=== PATIENT | male | born 1995 | race Caucasian/White ===

== ENCOUNTER 2019-05-06 23:59 | Emergency (ER) | payer SELFPAY ==
[2019-05-07 02:20] VITALS: BP 121/71; PULSE 74; TEMP 99.3; BMI 29.5
--- NOTE | 2019-05-07 02:25 | PDOC ---
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 Pt has no fevers at this time. Right TM is red; pt has more pain at the right throat>> left throat Pt hasno phryngeal exudates Pt has left TM bullous myringitis bubble. Pt will be treated with ZPAK - Physicial Exam PE: 05/07/19 02:51 TMright red TM left bubble on the TM pharynx normal HEENT normal Afebrile heart RR Lungs CTAB Abd soft NT ND +BS No C/C/E Pt is well hydrated - Medical Decision Making 05/07/19 02:52 Home with [facility]
[2019-05-07] MEDS ORDERED: IBUPROFEN 600 MG TABLET (FP) PO ONE ×2 (02:26→02:34)
[2019-05-07] MEDS ORDERED: AMOX TR/POT CLAV 875MG/125MG TABLETS (FP) PO ONE (02:26)
--- NOTE | 2019-05-07 02:26 | PDOC ---
History of Present Illness - General Chief Complaint: Sore Throat Stated Complaint: SORE THROAT Time Seen by Provider: 05/07/19 02:12 - History of Present Illness Initial Comments: The pt is a 23M w/ no reported PMH who presents for evaluation of 5 days of sore throat, right ear pain, and intermittent global/gradual onset HAs. He endorses associated nausea and cough. Denies fevers, chest pain, vomiting, diarrhea, ear drainage, vision/hearing changes, sick contacts. Has tried Naproxen with little relief. 05/07/19 02:23 Past History - Past Medical History Allergies/Adverse Reactions: Allergies Allergy/AdvReac Type Severity Reaction Status Date / Time No Known Allergies Allergy Verified 05/07/19 00:17 Home Medications: Ambulatory Orders Azithromycin [Zithromax 250mg Tablets -] 250 mg PO UTDICT #6 tab 05/07/19 - Psycho Social/Smoking Cessation Hx Smoking History: Current every day smoker Number of Cigarettes Smoked Daily: 20 Information on smoking cessation initiated: No Hx Alcohol Use: Yes Drug/Substance Use Hx: No Review of Systems - Review of Systems Able to Perform ROS?: Yes Comments:: GENERAL/CONSTITUTIONAL: No chills. No weakness HEAD, EYES, EARS, NOSE AND THROAT: No change in vision. No change in hearing CARDIOVASCULAR: No chest pain or shortness of breath RESPIRATORY: Denies hemoptysis GASTROINTESTINAL: No vomiting, diarrhea or constipation GENITOURINARY: No dysuria, frequency, or change in urination MUSCULOSKELETAL: No joint or muscle swelling or pain. No neck or back pain SKIN: No rash NEUROLOGIC: No headache, vertigo, loss of consciousness, or change in strength/ sensation ENDOCRINE: No increased thirst. No abnormal weight change HEMATOLOGIC/LYMPHATIC: No anemia, easy bleeding, or history of blood clots ALLERGIC/IMMUNOLOGIC: No hives or skin allergy 05/07/19 03:01 *Physical Exam - Vital Signs Last Vital Signs Temp Pulse Resp BP Pulse Ox 99.3 F 74 18 121/71 98 05/07/19 00:17 05/07/19 00:17 05/07/19 00:17 05/07/19 00:17 05/07/19 00:17 - Physical Exam GENERAL: Awake, alert, and oriented to person/place/time, in no acute distress HEAD: No signs of trauma, normoc ephalic, atraumatic EYES: PERRLA, EOMI, sclera anicteric, conjunctiva clear ENT: Hearing grossly normal, R TM dull w/ erythema, L TM w/ effusion w/o erythema, no external ear tenderness, nares patent, oropharynx clear without exudates. No uvular deviation. Moist mucosa LUNGS: No distress, speaks in full sentences, clear to auscultation bilaterally HEART: Regular rate and rhythm, normal S1 and S2, no murmurs appreciated, peripheral pulses normal and equal bilaterally ABDOMEN: Soft, nontender, normoactive bowel sounds. No guarding, no rebound EXTREMITIES: Normal inspection, Normal range of motion, no edema. No clubbing or cyanosis NEUROLOGICAL: Cranial nerves II through XII grossly intact. Normal speech, normal gait, no focal sensorimotor deficits SKIN: Warm, Dry 05/07/19 02:24 Medical Decision Making - Medical Decision Making The pt is a 23M w/ no reported PMH who presents for evaluation of 5 days of sore throat, right ear pain, and intermittent global/gradual onset HAs. ED Course Ibuprofen for RODAS Pt w/ likely bullous myringitis 05/07/19 02:25 Rx for Azithro Plan for D/C w/ PCP f/u Discharge instructions and return precautions given Patient in agreement and verbalized understanding Dispo: Home 05/07/19 02:54 Discharge - Discharge Information Problems reviewed: Yes Clinical Impression/Diagnosis: Bullous myringitis of right ear Otitis media Qualifiers: Otitis media type: unspecified Chronicity: acute Qualified Code(s): H66.90 - Otitis media, unspecified, unspecified ear Condition: Stable Disposition: HOME - Admission No - Additional Discharge Information Prescriptions: Azithromycin [Zithromax 250mg Tablets -] 250 mg PO UTDICT #6 tab - Follow up/Referral Referrals: [facility] [place] [Provider Group] - Patient Discharge Instructions Patient Printed Discharge Instructions: Middle Ear Infection Additional Instructions: You were seen in the Emergency Department and found to have an ear infection. A prescription for Azithromycin, take as directed. For pain and fever you may take Tylenol 650mg every 6 hours and Ibuprofen 600mg every 6-8 hours, alternating them each time. Follow up with your primary care provider or referral provided within a week. Return to the Emergency Department if you develop fevers despite Tylenol/ Ibuprofen use, chest pain, trouble breathing, worsening pain, change in sensation, worsening symptoms, or any new/concerning symptoms. Lo vieron en el departamento de emergencias y descubrieron que jono navjot infeccin de odo. Navjot receta para azitromicina, cesar segn las indicaciones. Para el dolor y la fiebre, puede cesar Tylenol 650mg cada 6 horas e Ibuprofen 600mg cada 6-8 horas, alternando cada vez. Cristhian un seguimiento con bowers proveedor de atencin primaria o la derivacin proporcionada dentro de navjot semana. Regrese al Departamento de Emergencias si desarrolla fiebre a pesar del uso de Tylenol / Ibuprofeno, dolor en el pecho, dificultad para respirar, empeoramiento del dolor, cambio de sensacin, empeoramiento de los sntomas o cualquier sntoma nuevo o preocupante. Print Language: FRENCH - Post Discharge Activity Work/Back to School Note: Back to Work
[2019-05-07] MEDS ORDERED: AMOX TR/POT CLAV 875MG/125MG TABLETS (FP) ONE (02:34)
== END 2019-05-07 03:14 | disposition home or self-care (01) ==
LOC: JER 23:59
DX: H66.91 Otitis media, unspecified, right ear (principal); F17.210 Nicotine dependence, cigarettes, uncomplicated
CPT/HCPCS: 99282-25